=== PATIENT | female | born 1970 | race Caucasian/White ===

== ENCOUNTER → 2016-07-27 | Outpatient (CLI) | payer BC ==
[~2016-07-27] MED LIST: CALC-51 PO; CHOL400T PO; CLON1TAB3 PO; METO25TA3 PO; MULT-506 PO; OXYC-106 PO; SERT-234 PO; SERT50TA PO; SIMV20TA2 PO
--- NOTE | 2016-07-27 09:15 | DIAGNOSTIC IMAGING REPORT ---
SINGLE CONTRAST UPPER GI SERIES CLINICAL HISTORY: Postoperative examination. Gastric sleeve surgery. COMPARISON STUDY: No priors. TECHNIQUE: A single contrast upper GI series was performed using Gastrografin. Spot images of the esophagus and stomach were obtained in multiple obliquities both upright and prone. FINDINGS: The patient swallowed Gastrografin without difficulty. The esophagus is structurally normal without evidence of intrinsic or extrinsic mass. No gastroesophageal reflux was elicited by having the patient perform the Valsalva maneuver. The gastroesophageal junction distends normally. The stomach appears truncated, and the configuration is consistent with the reported history of a gastric sleeve procedure. No extraluminal contrast/leakage is identified. No obvious mucosal abnormality seen on this single contrast examination. The duodenal bulb and sweep are unremarkable. Fluoroscopy time: 2.4 minutes. Fluoroscopic images: 28 IMPRESSION: Changes are consistent with the reported history of a gastric sleeve procedure. There is no extraluminal contrast/leakage, and contrast passes freely into the duodenum. Electronically signed by: Benito Sethi M.D. 07/27/2016 9:13 AM Dictated Date/Time: 07/27/2016 9:08 AM
== END | disposition home or self-care (01) ==
LOC: C.RAD 08:18
PROVIDERS: ATTEND Surgery
DX: K91.1 Postgastric surgery syndromes (principal)